=== PATIENT | female | born 1990 | race American Indian/Alaskan Native ===

== ENCOUNTER 2018-01-06 06:57 | Emergency (ER) | payer MEDICAID, OTHER ==
[2018-01-06 06:57] VITALS: BMI 32.8
--- NOTE | 2018-01-06 07:25 | C.PDOC ---
History Of Present Illness 27 y/o female, , c/o vaginal bleeding this morning, blood seen on panty liner on waking and when wiping after urination. pt has been to [facility] for bleeding in last 1-2 weeks, reports us showed +iup with heartbeat. Bleeding then stopped after 2-3 days, then some spotting, which stopped and bleeding today. denies any abdominal pain. no urinary symptoms. Time Seen by Provider: 01/06/18 07:10 Chief Complaint (Nursing): Female Genitourinary History Per: Patient History/Exam Limitations: no limitations Onset/Duration Of Symptoms: Hrs (2) Pain Scale Rating Of: 0 Associated Symptoms: Other (vaginal bleeding) Last Menstral Period: 10/29/17 : 2 Para: 0 Miscarriage: 1 Past Medical History Reviewed: Historical Data, Nursing Documentation, Vital Signs Vital Signs: Last Vital Signs Temp 98.3 F 01/06/18 10:37 Pulse 82 01/06/18 10:37 Resp 16 01/06/18 10:37 BP 112/76 01/06/18 10:37 Pulse Ox 99 01/07/18 07:45 - Medical History PMH: Asthma Denies: HIV, Chronic Kidney Disease Other PMH: RSD - [facility] Procedures ANESTH INJECT SYMP NERVE (01/07/15) INJECT STEROID (01/07/15) INJECT/INFUSE NEC (11/09/03) INTRODUCE REGIONAL ANESTH IN SPINAL CANAL, PERC (01/11/17) INTRODUCTION OF ANTI-INFLAM INTO SPINAL CANAL, PERC APPROACH (01/11/17) NEBULIZER THERAPY (12/14/03) SYMPATH NERVE INJECT NEC (01/07/15) Family History: States: Unknown Family Hx - Social History Hx Tobacco Use: No Hx Alcohol Use: No Hx Substance Use: No - Immunization History Hx Tetanus Toxoid Vaccination: No Hx Influenza Vaccination: No Hx Pneumococcal Vaccination: No Review Of Systems Constitutional: Negative for: Fever, Chills Gastrointestinal: Negative for: Nausea, Vomiting, Abdominal Pain Genitourinary: Positive for: Vaginal Bleeding. Negative for: Dysuria, Frequency , Pelvic Pain Physical Exam - Physical Exam Appears: Non-toxic, No Acute Distress Skin: Warm, Dry Head: Atraumatic, Normacephalic Cardiovascular: Rhythm Regular Respiratory: No Decreased Breath Sounds, No Wheezing Gastrointestinal/Abdominal: Bowel Sounds, Soft, No Tenderness Back: No CVA Tenderness Neurological/Psych: Oriented x3, Normal Speech, Normal Cognition ED Course And Treatment - Laboratory Results Result Diagrams: 01/06/18 07:42 01/06/18 07:42 O2 Sat by Pulse Oximetry: 99 (On RA) Pulse Ox Interpretation: Normal - CT Scan/US Obstetrics US Other Rad Studies (CT/US): Read By Radiologist, Radiology Report Reviewed CT/US Interpretation: Pelvic ultrasound. History: Vaginal bleeding. . Comparison: None available. Technique: Real-time sonography was performed through the pelvis. Findings: Limited 1st trimester ultrasound for viability purposes only. Continued interval followup with serial ultrasound, serial HCG levels, and gynecological consultation would be helpful if clinically indicated. HCG level measures 102,010. LMP of 10/29/2017. Estimated gestational age by LMP of 9 weeks and 6 days. Uterus: 14.3 x 5.9 x 7.4 centimeters. Heterogeneous echotexture. Anteverted. Cervix measures 4.2 centimeters. Intrauterine at noted. Intrauterine gestational sac measuring 4.2 centimeters corresponding to a gestational age of 9 weeks and 4 days. Yolk sac identified measuring 2.8 millimeters. [place]-rump length measures 1.9 centimeters corresponding to a gestational age of 8 weeks and 3 days. heart rate of 171 beats per minute. No free fluid in the pelvic cul-de-sac. Right ovary: 4.3 x 2.4 x 3.1 centimeters. Normal flow. Left ovary : 3.1 x 2.3 x 2.6 centimeters. Normal flow. Impression: Intrauterine corresponding to a gestational age of approximately 8 weeks and 3 days by crown-rump length of 1.9 centimeters. heart rate of 171 beats per minute. Additional findings as above. Limited 1st trimester ultrasound for viability purposes only. Continued interval followup with serial ultrasound, serial HCG levels, and gynecological consultation would be helpful if clinically indicated. Medical Decision Making Medical Decision Making: preg with vaginal bleeding- plan: labs, ua/upreg, transvaginal us 1032 pm pt with iup with fhr 171, bhcg 102,000. blood type O pos. d/c home with dx threatened ab, f/u with fan runner 01/14 as scheduled. given sono report to bring to her ob. 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 Bring copy of sonogram report to your doctor to review. Pelvic rest- nothing in vagina. - no sex. no tampons. no douching. Return to ER for heavy bleeding (one pad per hour ) or abdominal pain. Instructions: Threatened Miscarriage (ED) Forms: [facility] (Guyanese), General Discharge Instructions - Clinical Impression Clinical Impression: Threatened
[2018-01-06 07:48] LABS: BASO # 0.1 K/uL (0.0-0.2); BASO % 0.6 % (0.0-2.0); EOS # 0.2 K/uL (0.0-0.7); EOS % 1.7 % (0.0-4.0); LYMPH # 1.9 K/uL (1.0-4.3); LYMPH % 17.5 % (20.0-40.0); MEAN CELL VOLUME 85.6 fL (81.0-99.0); MEAN CORPUSCULAR HEMOGLOBIN 29.2 pg (27.0-31.0); MEAN CORPUSCULAR HGB CONC 34.1 g/dL (33.0-37.0); MEAN PLATELET VOLUME 7.6 fL (7.2-11.7); MONO % 9.1 % (0.0-10.0); NEUT # 7.6 K/uL (1.8-7.0); NEUT % 71.1 % (50.0-75.0); RBC 4.47 Mil/uL (3.80-5.20); RED CELL DISTRIBUTION WIDTH 14.2 % (11.5-14.5); WHITE BLOOD COUNT 10.7 K/uL (4.8-10.8)
[2018-01-06 07:54] LABS: SQUAMOUS EPITHIAL < 1 /hpf (0-5); URINE BILIRUBIN NEGATIVE (NEGATIVE); URINE BLOOD 2+ (NEGATIVE); URINE CLARITY Clear (Clear); URINE COLOR Yellow (YELLOW); URINE GLUCOSE (UA) NORMAL (Normal); URINE LEUKOCYTE ESTERASE NEG Leu/uL (Negative); URINE NITRATE NEGATIVE (NEGATIVE); URINE PROTEIN NEGATIVE (NEGATIVE)
[2018-01-06 08:02] LABS: ALB/GLOB RATIO 1.1 (1.0-2.1); ALBUMIN 3.7 g/dL (3.5-5.0); ALT/SGPT 28 U/L (9-52); AST/SGOT 18 U/L (14-36); BLOOD UREA NITROGEN 10 mg/dL (7-17); CALCIUM 8.5 mg/dl (8.6-10.4); GFR AFRICAN-AMERICAN > 60; GFR NON-AFRICAN AMERICAN > 60
--- NOTE | 2018-01-06 10:13 | US ---
Pelvic ultrasound History: Vaginal bleeding. . Comparison: None available. Technique: Real-time sonography was performed through the pelvis. Findings: Limited 1st trimester ultrasound for viability purposes only. Continued interval followup with serial ultrasound, serial HCG levels, and gynecological consultation would be helpful if clinically indicated. HCG level measures 102,010. LMP of 10/29/2017. Estimated gestational age by LMP of 9 weeks and 6 days. Uterus: 14.3 x 5.9 x 7.4 centimeters. Heterogeneous echotexture. Anteverted. Cervix measures 4.2 centimeters. Intrauterine at noted. Intrauterine gestational sac measuring 4.2 centimeters corresponding to a gestational age of 9 weeks and 4 days. Yolk sac identified measuring 2.8 millimeters. [place]-rump length measures 1.9 centimeters corresponding to a gestational age of 8 weeks and 3 days. heart rate of 171 beats per minute. No free fluid in the pelvic cul-de-sac. Right ovary: 4.3 x 2.4 x 3.1 centimeters. Normal flow. Left ovary: 3.1 x 2.3 x 2.6 centimeters. Normal flow. Impression: Intrauterine corresponding to a gestational age of approximately 8 weeks and 3 days by crown-rump length of 1.9 centimeters. heart rate of 171 beats per minute. Additional findings as above. Limited 1st trimester ultrasound for viability purposes only. Continued interval followup with serial ultrasound, serial HCG levels, and gynecological consultation would be helpful if clinically indicated.
[2018-01-06 10:37] VITALS: BP 112/76; PULSE 82; RESP 16; TEMP 98.3
[2018-01-06 11:49] VITALS: O2SAT 99
== END 2018-01-06 10:44 | disposition home or self-care (01) ==
LOC: C.ER 06:57 → SUPCPDRO 06:57 → C.ER 10:44
DX: O20.0 Threatened abortion (principal); Z3A.08 8 weeks gestation of pregnancy

== ENCOUNTER 2018-01-18 10:11 | Emergency (ER) | payer MEDICAID ==
[2018-01-18 10:11] VITALS: BMI 32.8
[2018-01-18 10:18] VITALS: TEMP 98.2; O2SAT 99
--- NOTE | 2018-01-18 10:38 | C.PDOC ---
History Of Present Illness 27-year-old female, (10 weeks), presents to the emergency department with complaints of vaginal bleeding that started this morning. Patient reports she has a Hx of similar and was seen in ED for it. She is pending an OBGYN appointment in one month. Notes mild pelvic cramping last night , which has now resolved. Denies fevers, chills, chest pain, shortness of breath , dizziness, back pain, nausea/vomiting, or any other associated symptoms. No other complaints at this time. SEEN 12/11 AND 01/06 FOR SAME, +IUP ON US 01/06 Time Seen by Provider: 01/18/18 10:25 Chief Complaint (Nursing): Female Genitourinary Past Medical History Reviewed: Historical Data, Nursing Documentation, Vital Signs Vital Signs: Last Vital Signs Temp 98.2 F 01/18/18 11:55 Pulse 67 01/18/18 11:55 Resp 18 01/18/18 11:55 BP 110/73 01/18/18 11:55 Pulse Ox 99 01/18/18 12:49 - Medical History PMH: Asthma - [facility] Procedures ANESTH INJECT SYMP NERVE (01/07/15) INJECT STEROID (01/07/15) INJECT/INFUSE NEC (11/09/03) INTRODUCE REGIONAL ANESTH IN SPINAL CANAL, PERC (01/11/17) INTRODUCTION OF ANTI-INFLAM INTO SPINAL CANAL, PERC APPROACH (01/11/17) NEBULIZER THERAPY (12/14/03) SYMPATH NERVE INJECT NEC (01/07/15) Family History: States: No Known Family Hx - Social History Hx Tobacco Use: No Hx Alcohol Use: No Hx Substance Use: No - Immunization History Hx Tetanus Toxoid Vaccination: No Hx Influenza Vaccination: No Hx Pneumococcal Vaccination: No Review Of Systems Except As Marked, All Systems Reviewed And Found Negative. Constitutional: Negative for: Fever, Chills Respiratory: Negative for: Shortness of Breath Gastrointestinal: Positive for: Abdominal Pain. Negative for: Nausea, Vomiting Genitourinary: Positive for: Vaginal Bleeding. Negative for: Dysuria Musculoskeletal: Negative for: Back Pain Neurological: Negative for: Weakness, Numbness, Headache, Dizziness Physical Exam - Physical Exam Appears: Non-toxic, No Acute Distress Skin: Normal Color, Warm, Dry, No Rash Head: Normacephalic Eye(s): bilateral: Normal Inspection, PERRL Nose: Normal Oral Mucosa: Moist Lips: Normal Appearing Neck: Normal ROM Cardiovascular: Rhythm Regular, No Murmur Respiratory: Normal Breath Sounds, No Accessory Muscle Use Gastrointestinal/Abdominal: Soft, No Tenderness, No Guarding, No Rebound Extremity: Normal ROM Neurological/Psych: Oriented x3, Normal Speech ED Course And Treatment - Laboratory Results Result Diagrams: 01/18/18 11:11 01/18/18 11:11 O2 Sat by Pulse Oximetry: 99 (RA) Pulse Ox Interpretation: Normal - CT Scan/US US Other Rad Studies (CT/US): Radiology Report Reviewed (Single intrauterine live with ultrasound estimated gestational age of 11 weeks 3 days 0 weeks 6 days. Estimated date of delivery by ultrasound is 08/06/2018) Progress - Data Reviewed Data Reviewed: Lab, Diagnostic imaging, Old records Medical Decision Making Medical Decision Making: Plan: * Type and Screen * Beta-HCG, CMP * CBC * UA * US * Reassess and Disposition Disposition Counseled Patient/Family Regarding: Studies Performed, Diagnosis, Need For Followup - Disposition Referrals: YOUR,OBGYN [Other] Disposition: HOME/ ROUTINE Disposition Time: 12:01 Condition: GOOD Instructions: Threatened Miscarriage Forms: Work/School/Gym Excuse, [facility] (Zambian) - Clinical Impression Clinical Impression: Threatened - Scribe Statement The provider has reviewed the documentation as recorded by the Scribe (Morelia Myles) All medical record entries made by the Scribe were at my direction and personally dictated by me. I have reviewed the chart and agree that the record accurately reflects my personal performance of the history, physical exam, medical decision making, and the department course for this patient. I have also personally directed, reviewed, and agree with the discharge instructions and disposition.
[2018-01-18 11:21] LABS: BASO # 0.1 K/uL (0.0-0.2); BASO % 0.5 % (0.0-2.0); EOS # 0.1 K/uL (0.0-0.7); EOS % 0.8 % (0.0-4.0); HEMOGLOBIN 13.9 g/dL (11.0-16.0); LYMPH # 1.7 K/uL (1.0-4.3); MEAN CORPUSCULAR HEMOGLOBIN 29.1 pg (27.0-31.0); MEAN CORPUSCULAR HGB CONC 33.8 g/dL (33.0-37.0); MEAN PLATELET VOLUME 7.8 fL (7.2-11.7); MONO # 0.6 K/uL (0.0-0.8); MONO % 5.9 % (0.0-10.0); NEUT # 8.3 K/uL (1.8-7.0); NEUT % 76.8 % (50.0-75.0); NRBC % 0.1 % (0.0-2.0); RBC 4.77 Mil/uL (3.80-5.20); RED CELL DISTRIBUTION WIDTH 14.5 % (11.5-14.5); WHITE BLOOD COUNT 10.8 K/uL (4.8-10.8)
[2018-01-18 11:22] LABS: HCG,QUALITATIVE URINE POSITIVE (NEGATIVE)
[2018-01-18 11:30] LABS: SQUAMOUS EPITHIAL 1 /hpf (0-5); URINE BILIRUBIN NEGATIVE (NEGATIVE); URINE BLOOD 3+ (NEGATIVE); URINE CLARITY Clear (Clear); URINE COLOR Yellow (YELLOW); URINE GLUCOSE (UA) NORMAL (Normal); URINE LEUKOCYTE ESTERASE NEG Leu/uL (Negative); URINE NITRATE NEGATIVE (NEGATIVE); URINE PROTEIN NEGATIVE (NEGATIVE); URINE UROBILINOGEN NORMAL mg/dL (0.2-1.0)
[2018-01-18 11:49] LABS: ALB/GLOB RATIO 1.1 (1.0-2.1); ALBUMIN 3.9 g/dL (3.5-5.0); ALT/SGPT 43 U/L (9-52); AST/SGOT 32 U/L (14-36); BLOOD UREA NITROGEN 7 mg/dL (7-17); GFR AFRICAN-AMERICAN > 60; GFR NON-AFRICAN AMERICAN > 60
--- NOTE | 2018-01-18 11:56 | US ---
PROCEDURE: OB Pelvic Ultrasound HISTORY: vb ro ectopic LMP: COMPARISON: Comparison is made with the previous study dated 01/06/2018 FINDINGS: UTERUS: Gestational sac: Single intrauterine gestation. Heart rate: 168 bpm. age (Ultrasound estimated): 11 weeks 3 days 0 weeks 6 days Josefa-gestational hemorrhage: None. Date of delivery (Ultrasound estimated) : 08/06/2028 Uterus measures 15.6 x 7.6 x 7.9 cm. Normal in size and appearance. CERVIX: Measures 3.5 cm. Long and closed. No cervical abnormality seen. RIGHT OVARY: Measures 3.4 x 2.2 x 3.3 cm. No mass lesion. Normal flow. LEFT OVARY: Measures 3.2 x 2.2 x 2.8 cm. No solid mass. Normal flow. FREE FLUID: None. OTHER FINDINGS: None. IMPRESSION: Single intrauterine live with ultrasound estimated gestational age of 11 weeks 3 days 0 weeks 6 days. Estimated date of delivery by ultrasound is 08/06/2018
[2018-01-18 11:59] VITALS: BP 110/73; PULSE 67; RESP 18
== END 2018-01-18 12:48 | disposition home or self-care (01) ==
LOC: C.ER 10:11
DX: O20.0 Threatened abortion (principal); Z3A.11 11 weeks gestation of pregnancy

== ENCOUNTER 2018-04-22 19:11 | Emergency (ER) | payer MEDICAID, OTHER ==
[2018-04-22 20:15] VITALS: BMI 34.2
[2018-04-22 20:33] LABS: BASO # 0.1 K/uL (0.0-0.2); BASO % 0.4 % (0.0-2.0); EOS # 0.2 K/uL (0.0-0.7); EOS % 1.5 % (0.0-4.0); HEMOGLOBIN 12.5 g/dL (11.0-16.0); LYMPH # 3.2 K/uL (1.0-4.3); LYMPH % 24.6 % (20.0-40.0); MEAN CELL VOLUME 87.4 fL (81.0-99.0); MEAN CORPUSCULAR HEMOGLOBIN 29.5 pg (27.0-31.0); MEAN CORPUSCULAR HGB CONC 33.8 g/dL (33.0-37.0); MEAN PLATELET VOLUME 7.7 fL (7.2-11.7); MONO # 0.9 K/uL (0.0-0.8); MONO % 7.1 % (0.0-10.0); NEUT # 8.6 K/uL (1.8-7.0); NEUT % 66.4 % (50.0-75.0); NRBC % 0.1 % (0.0-2.0); RBC 4.24 Mil/uL (3.80-5.20); RED CELL DISTRIBUTION WIDTH 14.1 % (11.5-14.5); WHITE BLOOD COUNT 12.9 K/uL (4.8-10.8)
[2018-04-22 20:38] LABS: SQUAMOUS EPITHIAL 9 /hpf (0-5); URINE BACTERIA MANY (<OCC); URINE BILIRUBIN NEGATIVE (NEGATIVE); URINE BLOOD 3+ (NEGATIVE); URINE CLARITY Hazy (Clear); URINE COLOR Yellow (YELLOW); URINE GLUCOSE (UA) NORMAL (Normal); URINE LEUKOCYTE ESTERASE 3+ Leu/uL (Negative); URINE PROTEIN NEGATIVE (NEGATIVE); URINE UROBILINOGEN NORMAL mg/dL (0.2-1.0)
[2018-04-22 20:49] LABS: ALB/GLOB RATIO 0.9 (1.0-2.1); ALBUMIN 3.4 g/dL (3.5-5.0); ALT/SGPT 51 U/L (9-52); AST/SGOT 26 U/L (14-36); BLOOD UREA NITROGEN 6 mg/dL (7-17); CALCIUM 9.2 mg/dl (8.6-10.4); GFR AFRICAN-AMERICAN > 60; GFR NON-AFRICAN AMERICAN > 60
--- NOTE | 2018-04-22 22:21 | US ---
EXAM: US Abdomen Complete CLINICAL HISTORY: 27 years old, female; Pain; Abdominal pain; Generalized; TECHNIQUE: Real-time ultrasound of the abdomen (complete) with image documentation. COMPARISON: No relevant prior studies available. FINDINGS: Liver: Normal echogenicity. No mass. No intrahepatic bile duct dilatation. Gallbladder: No gallstones. No wall thickening. No pericholecystic fluid. No sonographic Capone's sign. Common bile duct: No dilatation. No stones. Pancreas: Unremarkable as visualized. Kidneys: Normal echogenicity. No hydronephrosis. Spleen: No splenomegaly. Aorta: Unremarkable. No aneurysm. Inferior vena cava: Unremarkable. Free fluid: No significant free fluid. IMPRESSION: 1.No acute findings.
--- NOTE | 2018-04-22 22:48 | OBHP ---
Datetime: 04/22/2018 22:37 IP Adm Impression: , intrauterine ; No Active Labor IP Admit Plan: Observation/Evaluation; Discharge home Admit Comment, IP Provider: 27 @ 02/05 presents today with complaints of lower pelvic pain x 1 day and vaginal spotting when she wipes. Pt states that the pain is 6/10, does not radiate. The pa in is constant. Nothing improves the pain or makes it better. She has not taken any medication. PNC: [facility] POBHx: Short cervix. cerclage this at 20wks. SAB 2016 PSHx: 2016 D_C for SAB Social: denies etoh, smoking or drugs. Meds: vaginal progesterone ALL; NKDA. FHx: breast ca: Maternal GM breast ca. Lung Ca: Great aunt, Liver Ca: Maternal uncle. ROS: ENT: negative, HEENT:neg. Chest; neg, Resp: neg, Gi/: negative. Muscle: negative, neuro: ne gative. PE: see progress notes. Labs: UA: +UTI, abdominal US: WNL, WBC; 12 A/P: lower pelvic pain 1) UTI -> urine culture sent: Keflex given to the pt. 2) Abdominal US: WNL. 3) Follow up with her primary care and repeat UA in one month. 4) Discharge Home. Pelvic Type - PN: Adequate Extremities - PN: Normal Abdomen - PN: Normal Back - PN: Normal Breast - PN: Normal Lungs - PN: Normal Heart - PN: Normal Thyroid - PN: Normal Neurologic - PN: Normal HEENT - PN: Normal General - PN: Normal FHR - Baseline A Provider: 150 Membranes, Provider: Intact Comments, ACOG Physical Exam: speculum exam: closed cervix, no vaginal bleeding or blood noted. manual exam: closed/long/hi abdominal US: normal. Gestation - Est Wks by US: 02/05 EGA AdmitDate IP: 23.3 IP Chief Complaint: Vaginal bleeding; Signs/symptoms UTI NICHD Variability Prov Fetus A: Moderate 6-25bpm NICHD Accel Fetus A IP Provider: [id number] NICHD Decel Fetus A IP Provider: None Dilatation, Provider: 0 Effacement, Provider: 0 Station, Provider: -3 Genitourinary Exam: Normal DTRs - PN: Normal
[2018-04-23 03:15] VITALS: BP 118/68; PULSE 81; TEMP 97; O2SAT 82
== END 2018-04-22 23:00 | disposition home or self-care (01) ==
LOC: C.EROB 19:11 → C.ER 19:11 → C.EROB 23:00
DX: O26.892 Other specified pregnancy related conditions, second trimester (principal); Z3A.20 20 weeks gestation of pregnancy; R10.2 Pelvic and perineal pain

== ENCOUNTER 2018-05-09 00:56 | Emergency (ER) | payer OTHER ==
[2018-05-09 01:35] LABS: SQUAMOUS EPITHIAL 3 /hpf (0-5); URINE BILIRUBIN NEGATIVE (NEGATIVE); URINE BLOOD NEGATIVE (NEGATIVE); URINE CLARITY Clear (Clear); URINE COLOR Yellow (YELLOW); URINE GLUCOSE (UA) NORMAL (Normal); URINE LEUKOCYTE ESTERASE 2+ Leu/uL (Negative); URINE PROTEIN NEGATIVE (NEGATIVE); URINE UROBILINOGEN NORMAL mg/dL (0.2-1.0)
--- NOTE | 2018-05-09 02:26 | OBHP ---
Datetime: 05/09/2018 02:16 IP Adm Impression: , intrauterine IP Admit Plan: Discharge home Admit Comment, IP Provider: 27 @ 25 05/08 presents today with complaints of lower pelvic discom fort on and off x 1-2 day. pt was recenlty seen aracelis er 2 week ago adn dx with uti and terated. pt Pt states that the discmofrt is 4/10, does not radiate. pt rpeorts cercalge this on vaign al progesteon aon bed red. Nothing improves the pain or makes it better. She has not taken any medic ation. Pt denies any dysuria, urgency, freuqency, constiaption, discahrbe, itching, orod. pt not sexu all active, no fever, chills, naseu, vmiting, cp, sob. PNC: [facility] POBHx: Short cervix. cerclage this at 20wks. SAB 2016 PSHx: 2016 D_C for SAB Social: denies etoh, smoking or drugs. Meds: vaginal progesterone ALL; NKDA. FHx: breast ca: Maternal GM breast ca. Lung Ca: Great aunt, Liver Ca: Maternal uncle. ROS: ENT: negative, HEENT:neg. Chest; neg, Resp: neg, Gi/: negative. Muscle: negative, neuro: ne gative. PE: see above Labs: UA: +Leuks A/P: lower pelvic pressure 1) advised ddx not limited to pelvic pressrein pergnancy, vs uti, vs vagintiis low supsciton for uti, vagnitins given limited sypmtoms pt offered treatmetnfor uti, however declined adn will leave urien for cuture and call for results . pt counsled on hydration, pelvic rest, belt and teonol use occasional and to return to [facility]- labor pruecutins givne pt also advied aracelis hopsital isleve I not specicilizing in those infants delivered before 36 wee ks 2) Follow up with her primary care and f/u o/p urne cx reults. pretemr labor and pain precuaitn gi karin 3) Discharge Home. Pelvic Type - PN: Adequate Extremities - PN: Normal Abdomen - PN: Normal Back - PN: Normal Breast - PN: Not Done Lungs - PN: Normal Heart - PN: Normal Thyroid - PN: Not Done Neurologic - PN: Normal HEENT - PN: Normal General - PN: Normal FHR - Baseline A Provider: 145 Membranes, Provider: Intact Contraction Comments Provider: irreuglar Comments, ACOG Physical Exam: speculum exam: closed cervix, no vaginal bleeding, noabnormla discharg e, non fould odor, cerclage not on tesion VE closed/long/hi back no cva b/l Gestation - Est Wks by US: 25.6 EGA AdmitDate IP: 25.6 Vital Signs Provider: Reviewed; Within Normal Limits IP Chief Complaint: Other NICHD Variability Prov Fetus A: Moderate 6-25bpm NICHD Decel Fetus A IP Provider: None Dilatation, Provider: 0 Genitourinary Exam: Normal DTRs - PN: Normal
--- NOTE | 2018-05-09 02:26 | OBDCSUM ---
Datetime: 05/09/2018 02:23 Follow up at, Provider: clinic Discharge Instructions, Provider: Specific instructions as noted Discharge Time: 05/09/2018 02:23 Follow up in weeks, Provider: 05/20/18, sooner if unimproved Disch Activity Restrictions: No sexual activity; Nothing in vagina - [place], tampons, douche Discharge Comment, Provider: labor precaution sgiven Discharge Diagnosis Prov Other: pelvic pressure iwth cerclage not n labor
[2018-05-09 07:09] VITALS: BP 118/70; PULSE 78; RESP 18; TEMP 97
== END 2018-05-09 02:45 | disposition home or self-care (01) ==
LOC: C.EROB 00:56
DX: O26.92 Pregnancy related conditions, unspecified, second trimester (principal); R10.2 Pelvic and perineal pain; Z3A.25 25 weeks gestation of pregnancy